=== PATIENT | male | born 1955 | race Caucasian/White ===

== ENCOUNTER → 2016-12-12 | Outpatient (CLI) | payer OTHER ==
[2014-08-21 07:40] VITALS: BP 132/85
[~2016-12-12] MED LIST: ALEVE220 MG PO; COREG12.5 MG PO; HYDROCHLOROTHIA25 MG PO; LEVOTHYROXIN0.025 MG PO; RANITIDINE 150150 MG PO
== END ==
LOC: LAB 17:56
DX: I10 Essential (primary) hypertension (principal); R73.01 Impaired fasting glucose; E03.9 Hypothyroidism, unspecified; Z12.5 Encounter for screening for malignant neoplasm of prostate; Z80.0 Family history of malignant neoplasm of digestive organs

== ENCOUNTER → 2016-12-14 | Outpatient (CLI) | payer OTHER ==
[2014-08-21 07:40] VITALS: BP 132/85
== END ==
LOC: LAB 18:41
DX: R97.20 Elevated prostate specific antigen [PSA] (principal); I10 Essential (primary) hypertension; R73.01 Impaired fasting glucose

== ENCOUNTER → 2017-02-14 | Outpatient (CLI) | payer OTHER ==
[2014-08-21 07:40] VITALS: BP 132/85
== END ==
LOC: LAB 07:48
DX: M10.9 Gout, unspecified (principal)

== ENCOUNTER → 2017-07-11 | Day surgery (SDC) | payer OTHER ==
[2014-08-21 07:40] VITALS: BP 132/85
== END ==
LOC: MSO 14:00
DX: K21.0 Gastro-esophageal reflux disease with esophagitis (principal); Z12.11 Encounter for screening for malignant neoplasm of colon; Z88.0 Allergy status to penicillin; I10 Essential (primary) hypertension; E78.00 Pure hypercholesterolemia, unspecified; E03.9 Hypothyroidism, unspecified
CPT/HCPCS: 00813; A4649; J2704; J3010; J7120

== ENCOUNTER → 2020-02-07 | Outpatient (CLI) | payer BC ==
[2014-08-21 07:40] VITALS: BP 132/85
[2020-02-07 11:10] LABS: ALBUMIN 4.1 g/dL (3.4-4.8); POTASSIUM 4.4 mmol/L (3.5-5.1)
[2020-02-07 11:13] LABS: TOTAL PROTEIN 7.1 g/dL (6.2-8.1)
[2020-02-07 11:15] LABS: TOTAL BILIRUBIN 0.7 mg/dL (0.2-1.2)
== END ==
LOC: LAB 10:40
PROVIDERS: Family Medicine
DX: E03.9 Hypothyroidism, unspecified (principal); E78.00 Pure hypercholesterolemia, unspecified; I10 Essential (primary) hypertension; M1A.9XX0 Chronic gout, unspecified, without tophus (tophi); J45.31 Mild persistent asthma with (acute) exacerbation; H65.93 Unspecified nonsuppurative otitis media, bilateral; R97.20 Elevated prostate specific antigen [PSA]

== ENCOUNTER → 2020-02-14 | Outpatient (CLI) | payer BC ==
[2014-08-21 07:40] VITALS: BP 132/85
== END ==
LOC: LAB 16:53
DX: M1A.9XX0 Chronic gout, unspecified, without tophus (tophi) (principal); R97.20 Elevated prostate specific antigen [PSA]

== ENCOUNTER → 2020-05-01 | Outpatient (CLI) | payer BC ==
[2014-08-21 07:40] VITALS: BP 132/85
== END ==
LOC: LAB 12:06
DX: R73.9 Hyperglycemia, unspecified (principal)

== ENCOUNTER 2020-09-29 23:14 | Emergency (ER) | payer BC ==
[2020-09-29] MEDS ORDERED: PANTOPRAZOLE SO40 MG PO (23:25)
[2020-09-29] MEDS ORDERED: ST. JOSEPH ASPI81 M1 PO (23:25)
[2020-09-29] MEDS ORDERED: COREG12.5 M1 PO ×2 (23:26)
[2020-09-29] MEDS ORDERED: LEVOTHYROXINE0.05 MG PO (23:26)
[2020-09-29] MEDS ORDERED: ATORVASTATIN CA10 MG PO (23:27)
[2020-09-29 23:50] LABS: HEMATOCRIT 45.9 % (42.0-52.0); HEMOGLOBIN 15.4 g/dL (13.5-18.0); MEAN CELL VOLUME 91 fl (78-100); MEAN CORPUSCULAR HEMOGLOBIN 31 pg (27-31); MEAN CORPUSCULAR HGB CONC 34 g/dL (33-37); MEAN PLATELET VOLUME 10.1 fl (7.4-10.4); PLATELET COUNT 236 K/mm3 (130-400); RED BLOOD COUNT 5.05 M/mm3 (4.20-5.60); WHITE BLOOD COUNT 15.2 K/mm3 (4.8-10.8)
[2020-09-29 23:58] LABS: ALBUMIN 3.8 g/dL (3.4-4.8); POTASSIUM 3.5 mmol/L (3.5-5.1); SODIUM 139 mmol/L (136-145)
[2020-09-30] LABS: CALCIUM 8.9 mg/dL (8.3-10.5)
[2020-09-30 00:01] LABS: GLUCOSE 139 mg/dL (75-110); TOTAL PROTEIN 6.8 g/dL (6.2-8.1)
[2020-09-30 00:02] LABS: CARBON DIOXIDE 23 mmol/L (23-31)
[2020-09-30 00:03] LABS: TOTAL BILIRUBIN 0.8 mg/dL (0.2-1.2)
[2020-09-30 00:06] LABS: AST-SGOT 20 U/L (5-34)
[2020-09-30 00:07] LABS: ALT/SGPT 30 U/L (0-55)
[2020-09-30 00:22] LABS: TROPONIN-I < 0.03 ng/mL (<0.030)
[2020-09-30 00:23] LABS: D-DIMER 0.94 mg/L FEU (0.15-0.50)
[2020-09-30 00:41] LABS: BAND 20 % (0-10); LYMPHOCYTE 7 % (20-51); MONOCYTE 3 % (3-10); NEUTROPHILS 70 % (42-75)
[2020-09-30 01:23] LABS: URINE APPEARANCE CLEAR; URINE BILIRUBIN NEGATIVE (NEGATIVE); URINE BLOOD NEGATIVE (NEGATIVE); URINE COLOR YELLOW; URINE GLUCOSE NEGATIVE (NEGATIVE); URINE KETONE NEGATIVE (NEGATIVE); URINE LEUKOCYTE ESTERASE NEGATIVE (NEGATIVE); URINE NITRATE NEGATIVE (NEGATIVE); URINE PROTEIN(semi-quant) TRACE mg/dL (NEGATIVE); URINE UROBILINOGEN NORMAL (NORMAL); URINE WBC 0-1 /hpf (0-3)
[2020-09-30 02:56] VITALS: BP 112/68
== END 2020-09-30 02:56 | disposition short-term general hospital (02) ==
LOC: ED 23:14
PROVIDERS: Nurse Practitioner Family
DX: R06.02 Shortness of breath (principal); K57.32 Diverticulitis of large intestine without perforation or abscess without bleeding; K62.5 Hemorrhage of anus and rectum; D72.825 Bandemia; E11.9 Type 2 diabetes mellitus without complications; I10 Essential (primary) hypertension; E78.5 Hyperlipidemia, unspecified; E66.9 Obesity, unspecified; Z20.822 Contact with and (suspected) exposure to COVID-19; Z68.35 Body mass index [BMI] 35.0-35.9, adult; Z88.0 Allergy status to penicillin; Z88.7 Allergy status to serum and vaccine; Z79.899 Other long term (current) drug therapy
CPT/HCPCS: J1956; J2405; J7030; Q9967

== ENCOUNTER → 2020-10-08 | Outpatient (CLI) | payer BC ==
[2020-09-30 02:56] VITALS: BP 112/68
[~2020-10-08] MED LIST changes: +ATORVASTATIN CA10 MG PO; +COREG12.5 M1 PO; +LEVOTHYROXINE0.05 MG PO; +PANTOPRAZOLE SO40 MG PO; +ST. JOSEPH ASPI81 M1 PO
== END ==
LOC: LAB 11:05
DX: E11.9 Type 2 diabetes mellitus without complications (principal)

== ENCOUNTER → 2021-03-09 | Outpatient (CLI) | payer BC ==
[2021-03-09 09:09] LABS: POTASSIUM 4.1 mmol/L (3.5-5.1)
[2021-03-09 09:10] LABS: CALCIUM 9.6 mg/dL (8.3-10.5)
[2021-03-09 09:11] LABS: TOTAL PROTEIN 7.5 g/dL (6.2-8.1)
== END ==
LOC: LAB 08:15
PROVIDERS: Family Medicine
DX: E03.9 Hypothyroidism, unspecified (principal); I10 Essential (primary) hypertension; E11.9 Type 2 diabetes mellitus without complications; R97.20 Elevated prostate specific antigen [PSA]

== ENCOUNTER → 2021-06-21 | Outpatient (CLI) | payer BC | LOC: LAB 12:09 | DX: Z20.822 Contact with and (suspected) exposure to COVID-19 (principal) ==

== ENCOUNTER → 2021-06-30 | Outpatient (CLI) | payer BC | LOC: LAB 08:57 | DX: C61 Malignant neoplasm of prostate (principal); Z80.42 Family history of malignant neoplasm of prostate ==

== ENCOUNTER → 2021-09-08 | Outpatient (CLI) | payer BC | LOC: LAB 17:48 | DX: E11.9 Type 2 diabetes mellitus without complications (principal); E78.00 Pure hypercholesterolemia, unspecified; K21.00 Gastro-esophageal reflux disease with esophagitis, without bleeding; E03.9 Hypothyroidism, unspecified; I10 Essential (primary) hypertension; M79.674 Pain in right toe(s); R97.20 Elevated prostate specific antigen [PSA]; N42.89 Other specified disorders of prostate; Z87.438 Personal history of other diseases of male genital organs; Z87.19 Personal history of other diseases of the digestive system ==

== ENCOUNTER → 2021-10-08 | Outpatient (CLI) | payer BC | LOC: CARDREHAB 10-01 09:05 | DX: Z13.6 Encounter for screening for cardiovascular disorders (principal); R06.09 Other forms of dyspnea | CPT/HCPCS: A9500 ==

== ENCOUNTER → 2021-12-14 | Outpatient (CLI) | payer BC | LOC: LAB 08:32 | DX: Z00.00 Encounter for general adult medical examination without abnormal findings (principal); Z23 Encounter for immunization; Z13.6 Encounter for screening for cardiovascular disorders; Z12.11 Encounter for screening for malignant neoplasm of colon; R06.00 Dyspnea, unspecified; K57.90 Diverticulosis of intestine, part unspecified, without perforation or abscess without bleeding; K21.00 Gastro-esophageal reflux disease with esophagitis, without bleeding; M54.41 Lumbago with sciatica, right side ==

== ENCOUNTER → 2021-12-21 | Outpatient (CLI) | payer BC | LOC: LAB 08:47 | DX: C61 Malignant neoplasm of prostate (principal) ==

== ENCOUNTER → 2022-03-09 | Outpatient (CLI) | payer BC | LOC: LAB 07:55 | DX: M10.9 Gout, unspecified (principal); E78.00 Pure hypercholesterolemia, unspecified; E11.9 Type 2 diabetes mellitus without complications; E03.9 Hypothyroidism, unspecified ==

== ENCOUNTER → 2023-03-03 | Outpatient (CLI) | payer BC | LOC: LAB 09:17 | DX: E03.9 Hypothyroidism, unspecified (principal); M10.9 Gout, unspecified; E78.00 Pure hypercholesterolemia, unspecified; E11.9 Type 2 diabetes mellitus without complications ==

== ENCOUNTER → 2023-11-15 | Outpatient (CLI) | payer BC ==
[2023-11-15 09:18] LABS: CALCIUM 9.4 mg/dL (8.3-10.5)
== END ==
LOC: LAB 08:39
PROVIDERS: Family Medicine
DX: M51.36 Other intervertebral disc degeneration, lumbar region (principal); M41.85 Other forms of scoliosis, thoracolumbar region; N43.0 Encysted hydrocele

== ENCOUNTER 2023-11-28 09:05 | Outpatient (RCR) | payer BC | END 2023-12-20 | disposition home or self-care (01) | LOC: PT | DX: M41.9 Scoliosis, unspecified (principal) ==

== ENCOUNTER → 2024-01-12 | Outpatient (CLI) | payer BC | LOC: RAD 08:39 | DX: M41.86 Other forms of scoliosis, lumbar region (principal); M41.84 Other forms of scoliosis, thoracic region; M47.816 Spondylosis without myelopathy or radiculopathy, lumbar region; M48.061 Spinal stenosis, lumbar region without neurogenic claudication ==

== ENCOUNTER → 2024-01-30 | Outpatient (CLI) | payer BC | LOC: LAB 15:30 | DX: C61 Malignant neoplasm of prostate (principal) ==

== ENCOUNTER → 2024-02-22 | Outpatient (CLI) | payer BC | LOC: LAB 16:30 | DX: E11.9 Type 2 diabetes mellitus without complications (principal) ==

== ENCOUNTER → 2024-06-12 | Outpatient (CLI) | payer BC | LOC: LAB 08:55 | DX: I10 Essential (primary) hypertension (principal); E03.4 Atrophy of thyroid (acquired); E11.9 Type 2 diabetes mellitus without complications ==